=== PATIENT | male | born 1995 | race American Indian/Alaskan Native ===

== ENCOUNTER 2017-07-25 21:33 | Emergency (ER) | payer SELFPAY ==
[2017-07-25 22:03] VITALS: BP 119/64
== END 2017-07-26 00:15 | disposition left against medical advice (07) ==
LOC: ED 21:33
DX: Z53.21 Procedure and treatment not carried out due to patient leaving prior to being seen by health care provider (principal)

== ENCOUNTER 2018-11-19 07:53 | Emergency (ER) | payer MEDICARE ==
[2018-11-19 09:21] VITALS: BP 125/63
--- NOTE | 2018-11-19 11:11 | Emergency Department Report ---
ED ENT HPI - General Chief complaint: Earache Stated complaint: EAR ACHE Time Seen by Provider: 11/19/18 10:48 Source: patient Mode of arrival: Ambulatory Limitations: No Limitations - History of Present Illness Initial comments: This is a 22-year-old male brought by mother nontoxic, well nourished in appearance, no acute signs of distress presents to the ED with c/o of left earache and discharge. Patient denies any ear drainage. Patient denies any trauma to the area. Patient denies any mastoid tenderness. Patient agrees to tragus tenderness. Patient denies hearing decrease or hearing changes. Patient denies any fever, chills, nausea, vomiting, chest pain, short of breath, headache or stiff neck. Patient denies any drug allergies. Patient is a poor historian. Patient denies any depression. Patient denies hearing voices or visual hallucinations. HX of psych. Denies any SI/HI. MD complaint: ear pain Location: L ear Severity: mild Severity scale (0 -10): 8 Quality: aching Consistency: constant Improves with: none Worsens with: none Associated Symptoms: discharge from ear. denies: fever, cough, gum swelling, toothache, pain with swallowing, sore throat, tinnitus, hearing loss, rhinorrhea - Related Data Previous Rx's Medication Instructions Recorded Last Taken Type Amoxicillin [Amoxicillin TAB] 875 mg PO BID #20 tablet 11/19/18 Unknown Rx Cipro/Dexameth 0.3/0.1% [Ciprodex 4 drops OT BID #1 bottle 11/19/18 Unknown Rx OTIC] Allergies Allergy/AdvReac Type Severity Reaction Status Date / Time No Known Allergies Allergy Unverified 07/25/17 22:15 ED Dental HPI - General Chief complaint: Earache Stated complaint: EAR ACHE Time Seen by Provider: 11/19/18 10:48 Source: patient Mode of arrival: Ambulatory Limitations: No Limitations - Related Data Previous Rx's Medication Instructions Recorded Last Taken Type Amoxicillin [Amoxicillin TAB] 875 mg PO BID #20 tablet 11/19/18 Unknown Rx Cipro/Dexameth 0.3/0.1% [Ciprodex 4 drops OT BID #1 bottle 11/19/18 Unknown Rx OTIC] Allergies Allergy/AdvReac Type Severity Reaction Status Date / Time No Known Allergies Allergy Unverified 07/25/17 22:15 ED Review of Systems ROS: Stated complaint: EAR ACHE Other details as noted in HPI Constitutional: denies: chills, fever Eyes: denies: eye pain, eye discharge, vision change ENT: ear pain. denies: throat pain Respiratory: denies: cough, shortness of breath, wheezing Cardiovascular: denies: chest pain, palpitations Endocrine: no symptoms reported Gastrointestinal: denies: abdominal pain, nausea, diarrhea Genitourinary: denies: urgency, dysuria Musculoskeletal: denies: back pain, joint swelling, arthralgia Skin: denies: rash, lesions Neurological: denies: headache, weakness, paresthesias Psychiatric: denies: anxiety, depression Hematological/Lymphatic: denies: easy bleeding, easy bruising ED Past Medical Hx - Past Medical History Previous Medical History?: Yes Hx Psychiatric Treatment: Yes (scizophrenia) Hx HIV: Yes - Surgical History Past Surgical History?: No - Social History Smoking Status: Current Every Day Smoker Substance Use Type: None - Medications Home Medications: Home Medications Medication Instructions Recorded Confirmed Last Taken Type Amoxicillin [Amoxicillin TAB] 875 mg PO BID #20 tablet 11/19/18 Unknown Rx Cipro/Dexameth 0.3/0.1% [Ciprodex 4 drops OT BID #1 bottle 11/19/18 Unknown Rx OTIC] ED Physical Exam - General Limitations: No Limitations General appearance: alert, in no apparent distress - Head Head exam: Present: atraumatic, normocephalic - Expanded ENT Exam Expanded Ear exam: Present: normal external inspection TM/Canal exam: Erythema: Left TM, Bulging: Left TM, Canal Discharge: Left TM Mouth exam: Present: normal external inspection. Absent: drooling, trismus, muffled voice Throat exam: Positive: normal inspection - Neck Neck exam: Present: normal inspection, full ROM. Absent: tenderness, meningismus, lymphadenopathy - Extremities Exam Extremities exam: Present: normal inspection, full ROM - Back Exam Back exam: Present: normal inspection, full ROM - Neurological Exam Neurological exam: Present: alert, oriented X3 - Psychiatric Psychiatric exam: Present: normal affect, normal mood. Absent: depressed, homicidal ideation, suicidal ideation - Skin Skin exam: Present: warm, dry, intact, normal color. Absent: rash ED Course Vital Signs 11/19/18 09:19 Temperature 97.8 F Pulse Rate 85 Respiratory 16 Rate Blood Pressure 125/63 O2 Sat by Pulse 98 Oximetry - Reevaluation(s) Reevaluation #1: 11/19/18 11:09 Patient is speaking in full sentences with no signs of distress noted. Critical care attestation.: If time is entered above; I have spent that time in minutes in the direct care of this critically ill patient, excluding procedure time. ED Disposition Clinical Impression: Left otitis media Qualifiers: Otitis media type: unspecified Qualified Code(s): H66.92 - Otitis media, unspecified, left ear Left otitis externa Qualifiers: Otitis externa type: unspecified type Chronicity: acute Qualified Code(s): H60.502 - Unspecified acute noninfective otitis externa, left ear Disposition: TO HOME OR SELFCARE Is pt being admited?: No Does the pt Need Aspirin: No Condition: Stable Instructions: Otitis Externa (ED), Otitis Media (ED) Additional Instructions: Follow-up with a primary care doctor in 3-5 days or if symptoms worsen and continue return to emergency room as soon as possible. Prescriptions: Amoxicillin [Amoxicillin TAB] 875 mg PO BID #20 tablet Cipro/Dexameth 0.3/0.1% [Ciprodex OTIC] 4 drops OT BID #1 bottle Referrals: [facility] CLAUDIA WESTFALL MD [Primary Care Provider] - 3-5 Days PRIMARY MD ASHLEY [Referring] - 3-5 Days JOVITA ECHEVARRIA MD [Staff Physician] - 3-5 Days JUAN ADDISON MD [Staff Physician] - 3-5 Days [facility] [Outside] - 3-5 Days
== END 2018-11-19 11:17 | disposition home or self-care (01) ==
LOC: ED 07:53
DX: H66.92 Otitis media, unspecified, left ear (principal); H60.502 Unspecified acute noninfective otitis externa, left ear
CPT/HCPCS: 99282

== ENCOUNTER 2018-11-19 11:25 | Emergency (ER) | payer MEDICAID, MEDICARE ==
--- NOTE | 2018-11-19 11:58 | Emergency Department Report ---
Chief Complaint: Psych Stated Complaint: SUICIDAL Time Seen by Provider: 11/19/18 11:33 - HPI History of Present Illness: WANTS TO WILL SHOOT SELF RESPONDING TO INTERNAL VOICES "MENTAL VIG" PER PT AGITATED TO PSYCH FOR EVAL MSE screening note: Focused history and physical exam performed. Due to findings the following was ordered: ED Disposition for MSE Condition: Stable
[2018-11-19 12:50] LABS: Bilirubin,Urine NEG (Negative); Blood,Urine NEG (Negative); Color,Urine Yellow (Yellow); Mucus,Urine FEW /HPF; Protein,Urine <15 mg/dL mg/dL (Negative); Urobilinogen,Urine < 2.0 mg/dL (<2.0); WBC,Urine < 1.0 /HPF (0.0-6.0)
[2018-11-19 12:58] LABS: Amphetamine Screen,Urine PRESUMPTIVE NEGATIVE; Benzodiazepines Screen,Urine PRESUMPTIVE NEGATIVE; Cocaine Screen,Urine PRESUMPTIVE NEGATIVE; Methadone Screen,Urine PRESUMPTIVE NEGATIVE; Opiate Screen,Urine PRESUMPTIVE NEGATIVE
[2018-11-19 12:58] LABS: Basophils % (Auto) 0.6 % (0.0-1.8); Eosinophils % (Auto) 0.4 % (0.0-4.3); Hematocrit 46.1 % (35.5-45.6); Hemoglobin 16.2 gm/dl (11.8-15.2); Lymphocytes # (Auto) 1.9 K/mm3 (1.2-5.4); Lymphocytes % (Auto) 27.6 % (13.4-35.0); Mean Corpuscular HGB Conc 35 % (32-34); Mean Corpuscular Volume 102 fl (84-94); Monocytes # (Auto) 0.5 K/mm3 (0.0-0.8); Monocytes % (Auto) 7.3 % (0.0-7.3); Platelet Count 236 K/mm3 (140-440); Red Blood Count 4.53 M/mm3 (3.65-5.03); Red Cell Distribution Width 14.5 % (13.2-15.2)
[2018-11-19 13:14] LABS: Cannabinoid Screen,Urine PRESUMPTIVE POSITIVE
[2018-11-19 13:43] LABS: Alanine Aminotransferase 22 units/L (7-56); Albumin 4.8 g/dL (3.9-5); BUN/Creatinine Ratio 17; Blood Urea Nitrogen 15 mg/dL (9-20); Calcium 9.7 mg/dL (8.4-10.2); Hemolysis Index 15
--- NOTE | 2018-11-19 14:23 | Emergency Department Report ---
ED Psych HPI - General Chief Complaint: Psych Stated Complaint: SUICIDAL Time Seen by Provider: 11/19/18 11:33 Source: patient Mode of arrival: Ambulatory - History of Present Illness Initial Comments: This is a 22-year-old male nontoxic, well nourished in appearance, no acute si gns of distress presents to the ED with c/o of psychosis and stating wants to kill himself by shooting himself. Patient was just discharged by me. One patient was interviewed prior patient denied any suicidal or homicidal ideation. Patient was a poor historian. Patient denies any chest pain, shortness of breath, fever, chills, nausea, vomiting, headache or stiff neck. Denies any drug allergies. MD Complaint: suicidal ideation, feels depressed, other (psychosis) Associated Psychiatric Symptoms: depression, suicidal ideation History of same: Yes Quality: constant Improves With: none Worsens With: none Associated Symptoms: denies other symptoms. denies: confusion, headache, shortness of breath, nausea, vomiting, syncope, insomnia Treatments Prior to Arrival: none If Self Harm: admits thoughts of, has plan - Related Data Previous Rx's Medication Instructions Recorded Last Taken Type Amoxicillin [Amoxicillin TAB] 875 mg PO BID #20 tablet 11/19/18 Unknown Rx Cipro/Dexameth 0.3/0.1% [Ciprodex 4 drops OT BID #1 bottle 11/19/18 Unknown Rx OTIC] Allergies Allergy/AdvReac Type Severity Reaction Status Date / Time No Known Allergies Allergy Unverified 07/25/17 22:15 ED Review of Systems ROS: Stated complaint: SUICIDAL Other details as noted in HPI Constitutional: denies: chills, fever Eyes: denies: eye pain, eye discharge, vision change ENT: ear pain. denies: throat pain Respiratory: denies: cough, shortness of breath, wheezing Cardiovascular: denies: chest pain, palpitations Endocrine: no symptoms reported Gastrointestinal: denies: abdominal pain, nausea, diarrhea Genitourinary: denies: urgency, dysuria Musculoskeletal: denies: back pain, joint swelling, arthralgia Skin: denies: rash, lesions Neurological: denies: headache, weakness, paresthesias Psychiatric: depression, suicidal thoughts. denies: anxiety, homicidal thoughts Hematological/Lymphatic: denies: easy bleeding, easy bruising ED Past Medical Hx - Past Medical History Previous Medical History?: Yes Hx Psychiatric Treatment: Yes (scizophrenia) Hx HIV: Yes - Surgical History Past Surgical History?: No - Social History Smoking Status: Unknown if ever smoked Substance Use Type: None - Medications Home Medications: Home Medications Medication Instructions Recorded Confirmed Last Taken Type Amoxicillin [Amoxicillin TAB] 875 mg PO BID #20 tablet 11/19/18 Unknown Rx Cipro/Dexameth 0.3/0.1% [Ciprodex 4 drops OT BID #1 bottle 11/19/18 Unknown Rx OTIC] ED Physical Exam - General Limitations: No Limitations General appearance: alert, in no apparent distress - Head Head exam: Present: atraumatic, normocephalic - ENT ENT exam: Present: other (otits media and otits extrna) - Neck Neck exam: Present: normal inspection, full ROM. Absent: tenderness, meningismus, lymphadenopathy - Extremities Exam Extremities exam: Present: normal inspection, full ROM, normal capillary refill. Absent: tenderness - Back Exam Back exam: Present: normal inspection, full ROM. Absent: tenderness, CVA tenderness (R), CVA tenderness (L), muscle spasm, paraspinal tenderness, vertebral tenderness, rash noted - Neurological Exam Neurological exam: Present: alert, oriented X3 - Psychiatric Psychiatric exam: Present: depressed, suicidal ideation. Absent: normal affect, normal mood, agitated, anxious, flat affect, manic, homicidal ideation - Skin Skin exam: Present: warm, dry, intact, normal color. Absent: rash ED Course Vital Signs 11/19/18 11:56 Temperature 98.2 F Pulse Rate 87 Respiratory 18 Rate Blood Pressure 120/75 O2 Sat by Pulse 99 Oximetry - Reevaluation(s) Reevaluation #1: 11/19/18 14:24 Patient is speaking in full sentences with no signs of distress noted. ED Medical Decision Making - Lab Data Result diagrams: 11/19/18 12:29 11/19/18 12:29 Critical care attestation.: If time is entered above; I have spent that time in minutes in the direct care of this critically ill patient, excluding procedure time. ED Disposition Clinical Impression: Suicidal ideation Psychosis Qualifiers: Psychosis type: unspecified psychosis type Qualified Code(s): F29 - Unspecified psychosis not due to a substance or known physiological condition Left otitis media Qualifiers: Otitis media type: unspecified Qualified Code(s): H66.92 - Otitis media, unspecified, left ear Left otitis externa Qualifiers: Otitis externa type: unspecified type Chronicity: acute Qualified Code(s): H60.502 - Unspecified acute noninfective otitis externa, left ear Disposition: DC/TX-65 PSY HOSP/PSY UNIT Is pt being admited?: Yes Condition: Stable Referrals: JOIE CASTILLO MD [Primary Care Provider] - 3-5 Days
[2018-11-19] MEDS: CIPRODEX AD SCH ×2 (17:21→22:54)
[2018-11-19] MEDS: AUGMENTIN 500 MG PO SCH (17:22)
[2018-11-20] MEDS: AUGMENTIN 500 MG PO SCH ×2 (03:06→15:59)
--- NOTE | 2018-11-20 09:51 | Consultation ---
History of Present Illness - Reason for Consult Consult date: 11/20/18 Reason for consult: Mental Health Evaluation Requesting physician: KARUNA LAINEZ - Chief Complaint Chief complaint: "I want to leave" - History of Present Psychiatric Illness 22 y.o. AA male who presented to the ER SI's. Today the patient is calm and cooperative during the assessment. Per collateral information from the patient's mother Lizett Billings at [phone], she stated that her son was brought to the ER originally for a "eye pain." She stated that she was informed that he said "something" about wanting to kill himself. She stated that her son has a Intellectual disability. She denies any previous suicide attempts when asked. She stated that her son is compliant with his medication (Zyprexa). She stated that her son is seen by [facility] for outpatient psy services. She stated that she will pick her son up once he is discharged. She stated that the patient have medication at home. The patient denies SI/HI's. Per the chart, no behavioral disturbances by the patient overnight. Medications and Allergies Allergies Allergy/AdvReac Type Severity Reaction Status Date / Time No Known Allergies Allergy Unverified 07/25/17 22:15 Home Medications Medication Instructions Recorded Confirmed Last Taken Type Amoxicillin [Amoxicillin TAB] 875 mg PO BID #20 tablet 11/19/18 Unknown Rx Cipro/Dexameth 0.3/0.1% [Ciprodex 4 drops OT BID #1 bottle 11/19/18 Unknown Rx OTIC] Active Meds: Active Medications Amoxicillin/Clavulanate Potassium (Augmentin 500 Mg) [address] [facility] Last Admin: 11/20/18 03:06 Dose: 1 each Documented by: Ciprofloxacin/Dexamethasone (Ciprodex) [address] [facility] Last Admin: 11/19/18 22:54 Dose: 4 drops Documented by: Past psychiatric history - Past Medical History Past Medical History: HIV/AIDS Past Surgical History: No surgical history - past Psychiatric treatment and history psychiatric treatment history: The patient is seen at [facility]. Denies a fam psy hx per the patient's mother Ld Billings. - Social History Social history: lives with family Mental Status Exam - Vital signs Last Vital Signs Temp 97.8 F 11/20/18 01:00 Pulse 79 11/20/18 01:00 Resp 18 11/20/18 01:00 BP 124/85 11/20/18 01:00 Pulse Ox 99 11/20/18 01:00 - Exam Narrative exam: MSE: Appearance: calm, cooperative Behavior: regular eye contact Speech: some what slurred speech Mood: "okay" Affect: congruent to mood Thought Process: unable to assess Thought Content: denies SI/HI's and AVH's Motor Activity: sitting up in bed Cognition: A/O x 3 Insight: variable Judgment: fair Results Result Diagrams: 11/19/18 12:29 11/19/18 12:29 Abnormal lab results 11/19/18 11/19/18 11/19/18 Range/Units 12:23 12:29 12:29 Hgb 16.2 H (11.8-15.2) gm/dl Hct 46.1 H (35.5-45.6) % MCV 102 H (84-94) fl MCH 36 H (28-32) pg MCHC 35 H (32-34) % Total Protein 8.6 H (6.3-8.2) g/dL Ur Specific [place] 1.032 H (1.003-1.030) Salicylates (2.8-20.0) mg/dL Acetaminophen (10.0-30.0) ug/mL 11/19/18 11/19/18 Range/Units 12:29 12:29 Hgb (11.8-15.2) gm/dl Hct (35.5-45.6) % MCV (84-94) fl MCH (28-32) pg MCHC (32-34) % Total Protein (6.3-8.2) g/dL Ur Specific [place] (1.003-1.030) Salicylates < 0.3 L (2.8-20.0) mg/dL Acetaminophen < 5.0 L (10.0-30.0) ug/mL All other labs normal. Assessment and Plan Assessment and plan: Impression: Schizoaffective DO per the patient's mother. Unspecified Intellectual Disability. Today the patient is calm and cooperative during the assessment. The patient is no threat to self. Recommendation/Plan: Rescind 1013. The patient do not need any prescriptions. . Dispo: The patient can follow up with [facility] for outpatient psy services. Will staff with Dr Matt Thompson.
--- NOTE | 2018-11-20 11:10 | Emergency Department Report ---
Blank Doc - Documentation Documentation: I was asked by the nurse to evaluate Mr. Boothe for discharge. Patient was adm itted for acute psychosis and suicidal ideation. Patient is calm and cooperative and denied any suicidal or homicidal ideation. Patient denied any visual or auditory hallucination. Patient has been assessed by our mental health and psychiatric team and recommended outpatient treatment. Patient discharged in stable clinical and psychiatric condition.
[2018-11-20] MEDS: CIPRODEX AD SCH (11:52)
[2018-11-20 17:31] VITALS: BP 118/71
--- NOTE | 2019-03-16 14:12 | Consultation ---
History of Present Illness - Reason for Consult Consult date: 03/16/19 Reason for consult: Mental Health Evaluation - Chief Complaint Chief complaint: "I want to leave" Medications and Allergies Allergies Allergy/AdvReac Type Severity Reaction Status Date / Time No Known Allergies Allergy Unverified 07/25/17 22:15 Home Medications Medication Instructions Recorded Confirmed Last Taken Type OLANZapine [Zyprexa] 20 mg PO QHS 03/15/19 03/15/19 Unknown History OLANzapine [ZyPREXA] 10 mg PO QHS 03/15/19 03/15/19 Unknown History QUEtiapine [SEROquel] 100 mg PO QHS 03/15/19 03/15/19 Unknown History Mental Status Exam - Vital signs Last Vital Signs Temp 98.2 F 11/20/18 16:27 Pulse 90 11/20/18 16:27 Resp 18 11/20/18 16:27 BP 118/71 11/20/18 16:27 Pulse Ox 100 11/20/18 16:27 Results Result Diagrams: 11/19/18 12:29 11/19/18 12:29 All other labs normal.
--- NOTE | 2019-03-16 14:14 | Consultation ---
History of Present Illness - Reason for Consult Consult date: 03/16/19 Reason for consult: Mental Health Evaluation Requesting physician: SELENA MODI III - Chief Complaint Chief complaint: "I didn't do anything wrong" - History of Present Psychiatric Illness 23-year-old AA male who presented to the ER for AH's. This patient is known to me. Today the patient was calm during the assessment. He would answer some of my questions when asked. The patent has a hx of unspecified intellectual disabili ty. He does deny SI/HI's and AVH's. Overall, the patient's insight is limited. Medications and Allergies Allergies Allergy/AdvReac Type Severity Reaction Status Date / Time No Known Allergies Allergy Unverified 07/25/17 22:15 Home Medications Medication Instructions Recorded Confirmed Last Taken Type OLANZapine [Zyprexa] 20 mg PO QHS 03/15/19 03/15/19 Unknown History OLANzapine [ZyPREXA] 10 mg PO QHS 03/15/19 03/15/19 Unknown History QUEtiapine [SEROquel] 100 mg PO QHS 03/15/19 03/15/19 Unknown History Past psychiatric history - Past Medical History Past Medical History: HIV/AIDS Past Surgical History: Other (Unable to obtain ) - past Psychiatric treatment and history psychiatric treatment history: The patient is seen at [facility] for [facility]. Unable to obtain a fam psy hx. - Social History Social history: lives with family Mental Status Exam - Vital signs Last Vital Signs Temp 98.2 F 11/20/18 16:27 Pulse 90 11/20/18 16:27 Resp 18 11/20/18 16:27 BP 118/71 11/20/18 16:27 Pulse Ox 100 11/20/18 16:27 - Exam Narrative exam: MSE: Appearance: calm, cooperative Behavior: regular eye contact Speech: some what slurred speech Mood: "okay" Affect: congruent to mood Thought Process: unable to assess Thought Content: denies SI/HI's and AVH's Motor Activity: sitting up in bed Cognition: A/O x 3 Insight: limited Judgment: unable to assess Results Result Diagrams: 11/19/18 12:29 11/19/18 12:29 All other labs normal. Assessment and Plan Assessment and plan: Impression: Hx of Schizoaffective DO per the record and Unspecified Intellectual Disability. Today the patient was calm and cooperative during the assessment. Recommendation/Plan: Continue 1013 and gather collateral information. . Dispo: Once collateral information is gathered, proper dispo will be determined. Will staff with Dr Matt Thompson.
== END 2018-11-20 17:34 ==
LOC: EEVIPCON 11:25 → ED 11:25
DX: F25.9 Schizoaffective disorder, unspecified (principal); F79 Unspecified intellectual disabilities; F29 Unspecified psychosis not due to a substance or known physiological condition; H66.92 Otitis media, unspecified, left ear; H60.502 Unspecified acute noninfective otitis externa, left ear
CPT/HCPCS: 36415; 80053; 80307; 81001; 85025; 99284; G0480; 80320

== ENCOUNTER 2019-03-15 02:29 | Emergency (ER) | payer MEDICARE ==
[2019-03-15 03:15] LABS: Bilirubin,Urine NEG (Negative); Blood,Urine NEG (Negative); Color,Urine Yellow (Yellow); Mucus,Urine FEW /HPF; Protein,Urine <15 mg/dL mg/dL (Negative); Urobilinogen,Urine < 2.0 mg/dL (<2.0)
[2019-03-15 03:24] LABS: Amphetamine Screen,Urine PRESUMPTIVE NEGATIVE; Benzodiazepines Screen,Urine PRESUMPTIVE NEGATIVE; Cocaine Screen,Urine PRESUMPTIVE NEGATIVE; Methadone Screen,Urine PRESUMPTIVE NEGATIVE; Opiate Screen,Urine PRESUMPTIVE NEGATIVE
[2019-03-15 03:25] LABS: Hematocrit 43.4 % (35.5-45.6); Hemoglobin 14.9 gm/dl (11.8-15.2); Mean Corpuscular HGB Conc 34 % (32-34); Mean Corpuscular Hemoglobin 35 pg (28-32); Mean Corpuscular Volume 100 fl (84-94); Platelet Count 200 K/mm3 (140-440); Red Blood Count 4.32 M/mm3 (3.65-5.03); Red Cell Distribution Width 15.3 % (13.2-15.2)
[2019-03-15 03:37] LABS: Cannabinoid Screen,Urine PRESUMPTIVE POSITIVE
[2019-03-15 03:37] LABS: BUN/Creatinine Ratio 19; Blood Urea Nitrogen 19 mg/dL (9-20); Calcium 9.8 mg/dL (8.4-10.2); Hemolysis Index 12
--- NOTE | 2019-03-15 06:24 | Emergency Department Report ---
ED Psych HPI - General Chief Complaint: Psych Stated Complaint: MH Time Seen by Provider: 03/15/19 06:23 Source: patient Mode of arrival: Ambulatory Limitations: No Limitations - History of Present Illness Initial Comments: Patient is a 23-year-old mellitus for mental evaluation. Patient states he is hearing voices and seeing patients. Patient states she is also having thoughts that people are out to get him and that people are always watching him. Patient denies suicidal or homicidal ideations. Patient denies chest pain shortness of breath. Patient denies headache. Patient denies blurry vision. Patient denies physical complaints. -: Sudden Associated Psychiatric Symptoms: racing thoughts, auditory hallucinations, visual hallucinations History of same: Yes Quality: constant Improves With: none Worsens With: none Context: significant life stressor Associated Symptoms: denies: confusion, headache, shortness of breath, nausea, vomiting, syncope, insomnia - Related Data Previous Rx's Medication Instructions Recorded Last Taken Type Amoxicillin [Amoxicillin TAB] 875 mg PO BID #20 tablet 11/19/18 Unknown Rx Cipro/Dexameth 0.3/0.1% [Ciprodex 4 drops OT BID #1 bottle 11/19/18 Unknown Rx OTIC] Allergies Allergy/AdvReac Type Severity Reaction Status Date / Time No Known Allergies Allergy Unverified 07/25/17 22:15 ED Review of Systems ROS: Stated complaint: MH Other details as noted in HPI Constitutional: denies: chills, fever Eyes: denies: eye pain, eye discharge, vision change ENT: denies: ear pain, throat pain Respiratory: denies: cough, shortness of breath, wheezing Cardiovascular: denies: chest pain, palpitations Endocrine: no symptoms reported Gastrointestinal: denies: abdominal pain, nausea, diarrhea Genitourinary: denies: urgency, dysuria Musculoskeletal: denies: back pain, joint swelling, arthralgia Skin: denies: rash, lesions Neurological: denies: headache, weakness, paresthesias Psychiatric: depression, auditory hallucinations, visual hallucinations. denies: anxiety Hematological/Lymphatic: denies: easy bleeding, easy bruising ED Past Medical Hx - Past Medical History Previous Medical History?: Yes Hx Psychiatric Treatment: Yes (schizophrenia) Hx HIV: Yes - Surgical History Past Surgical History?: No - Social History Smoking Status: Never Smoker Substance Use Type: Marijuana - Medications Home Medications: Home Medications Medication Instructions Recorded Confirmed Last Taken Type Amoxicillin [Amoxicillin TAB] 875 mg PO BID #20 tablet 11/19/18 Unknown Rx Cipro/Dexameth 0.3/0.1% [Ciprodex 4 drops OT BID #1 bottle 11/19/18 Unknown Rx OTIC] ED Physical Exam - General Limitations: No Limitations General appearance: alert, in no apparent distress - Head Head exam: Present: atraumatic, normocephalic - Eye Eye exam: Present: normal appearance - ENT ENT exam: Present: mucous membranes moist - Neck Neck exam: Present: normal inspection - Respiratory Respiratory exam: Present: normal lung sounds bilaterally. Absent: respiratory distress - Cardiovascular Cardiovascular Exam: Present: regular rate, normal rhythm. Absent: systolic m urmur, diastolic murmur, rubs, gallop - GI/Abdominal GI/Abdominal exam: Present: soft, normal bowel sounds - Rectal Rectal exam: Present: deferred - Extremities Exam Extremities exam: Present: normal inspection - Back Exam Back exam: Present: normal inspection - Neurological Exam Neurological exam: Present: alert, oriented X3 - Psychiatric Psychiatric exam: Present: flat affect. Absent: homicidal ideation, suicidal ideation - Expanded Psychiatric Exam Expanded Focused psych exam: Present: pressured speech, delusional, paranoid, restlessness, flight of ideas - Skin Skin exam: Present: warm, dry, intact, normal color. Absent: rash ED Course Vital Signs 03/15/19 03/15/19 02:44 07:00 Temperature 97.9 F 97.5 F L Pulse Rate 79 99 H Respiratory 20 16 Rate Blood Pressure 115/70 Blood Pressure 109/74 [Left] O2 Sat by Pulse 100 99 Oximetry - Reevaluation(s) Reevaluation #1: pt placed on 1013 03/15/19 07:40 Reevaluation #2: Discussed all results with patient. Patient is medically clear. Patient will remain in the ER as a 1013. Patient agrees with plan of care 03/15/19 07:54 ED Medical Decision Making - Lab Data Result diagrams: 03/15/19 03:05 03/15/19 03:05 - Medical Decision Making Patient is a 23-year-old male presents to emergency room with complaints of audiovisual hallucinations, delusions and paranoia. Patient's findings consistent with acute psychosis. Patient placed on 1013 for his safety. Patient's labs on her and unremarkable. Patient is medically clear. Patient will remain in the ER on a 1013 until accepted into appropriate psychiatric facility. - Differential Diagnosis acute psychosis Critical care attestation.: If time is entered above; I have spent that time in minutes in the direct care of this critically ill patient, excluding procedure time. ED Disposition Clinical Impression: Hallucination, Acute psychosis Disposition: DC/TX-65 PSY HOSP/PSY UNIT Is pt being admited?: No Does the pt Need Aspirin: No Condition: Stable Additional Instructions: Patient medically cleared Referrals: JOIE CASTILLO MD [Primary Care Provider] - 3-5 Days Time of Disposition: 11:24
[2019-03-16] MEDS ORDERED: GEODON IM ONE ×2 (10:52→10:56)
[2019-03-16] MEDS ORDERED: WATER FOR INJ Sterile (PF) 10 ML ONE (10:53)
--- NOTE | 2019-03-16 20:53 | Consultation ---
History of Present Illness - Reason for Consult Consult date: 03/16/19 Reason for consult: Mental Health Evaluation Requesting physician: SELENA MODI III - Chief Complaint Chief complaint: "I didn't do anything wrong" - History of Present Psychiatric Illness 23-year-old AA male who presented to the ER for AH's. This patient is known to me. Today the patient was calm during the assessment. He would answer some of my questions when asked. The patent has a hx of unspecified intellectual disabili ty. The patient denies SI/HI's and AVH's. Overall, the patient's insight is limited. Medications and Allergies Allergies Allergy/AdvReac Type Severity Reaction Status Date / Time No Known Allergies Allergy Unverified 07/25/17 22:15 Home Medications Medication Instructions Recorded Confirmed Last Taken Type OLANZapine [Zyprexa] 20 mg PO QHS 03/15/19 03/15/19 Unknown History OLANzapine [ZyPREXA] 10 mg PO QHS 03/15/19 03/15/19 Unknown History QUEtiapine [SEROquel] 100 mg PO QHS 03/15/19 03/15/19 Unknown History Past psychiatric history - Past Medical History Past Medical History: HIV/AIDS Past Surgical History: No surgical history - past Psychiatric treatment and history psychiatric treatment history: The patient is seen at [facility] for [facility]. Unable to obtain a [facility] psy hx. Mental Status Exam - Vital signs Last Vital Signs Temp 98.7 F 03/16/19 17:00 Pulse 59 L 03/16/19 17:00 Resp 18 03/16/19 17:00 BP 119/53 03/16/19 17:00 Pulse Ox 100 03/16/19 17:00 - Exam Narrative exam: MSE: Appearance: calm, cooperative Behavior: regular eye contact Speech: some what slurred speech Mood: "okay" Affect: congruent to mood Thought Process: unable to assess Thought Content: denies SI/HI's and AVH's Motor Activity: sitting up in bed Cognition: A/O x 3 Insight: limited Judgment: unable to assess Results Result Diagrams: 03/15/19 03:05 03/15/19 03:05 All other labs normal. Assessment and Plan Assessment and plan: Impression: Hx of Schizoaffective DO and Unspecified Intellectual Disability per the record. Today the patient was calm and cooperative during the assessment. Recommendation/Plan: Continue 1013 and gather collateral information. Dispo: Once collateral information is gathered, proper dispo will be determined. Staffed with Dr Matt Thompson.
[2019-03-17] MEDS ORDERED: ATIVAN PO ONE (00:30)
[2019-03-17] MEDS ORDERED: ATIVAN ONE (00:33)
--- NOTE | 2019-03-17 18:54 | Progress Note ---
Subjective - Reason for Consult Consult date: 03/17/19 Reason for consult: follow up - Chief Complaint Chief complaint: "Hey." 23-year-old AA male who presented to the ER for AH's. He acknowledges he normally takes medication but was not sure what. The patent has a hx of unspecified intellectual disability. He was unable to appropriately participate in conversation. He was walking around the room touching various items. Overall, the patient's insight is limited. Mental Status Exam - Vital signs Last Vital Signs Temp 98.8 F 03/17/19 14:19 Pulse 69 03/17/19 14:19 Resp 18 03/17/19 14:19 BP 106/65 03/17/19 14:19 Pulse Ox 100 03/17/19 14:19 - Exam Narrative exam: MSE: Appearance: attempted to be cooperative. Behavior: moving around the room touching various items Speech: pressured Mood: indifferent Affect: constricted Thought Process: unable to assess Thought Content: unable to assess Motor Activity: pacing but otherwise, no abnormal movements Cognition: A/O x 3 Insight: limited Judgment: unable to assess Assessment and Plan Impression: Hx of Schizoaffective DO and Unspecified Intellectual Disability per the record. Today the patient was easily distracted and unable to appropriately participate in an interview. He acknowledges taking medications but not recently. Recommendation/Plan: Continue 1013 and gather collateral information. start depakote dr 500mg bid for manic symptoms start risperdal 1mg hs for psychotic symptoms risks/benefits discussed. He is agreeable Dispo: inpatient psychiatric facility Staffed with Dr Matt Thompson.
[2019-03-17] MEDS: RisperDAL PO SCH (21:35)
--- NOTE | 2019-03-18 17:00 | Progress Note ---
Subjective - Reason for Consult Consult date: 03/18/19 Reason for consult: follow up - Chief Complaint Chief complaint: "What." 23-year-old AA male who presented to the ER for AH's. He acknowledges he normally takes medication but was not sure what. The patent has a hx of unspecified intellectual disability. He was unable to appropriately participate in conversation. He is responding to internal stimuli. He reports hearing voices but cannot describe them. He does not sit still and his nurse says he has not slept in 2 days. His hygiene is poor. Mental Status Exam - Vital signs Last Vital Signs Temp 98.7 F 03/18/19 13:00 Pulse 61 03/18/19 13:00 Resp 18 03/18/19 13:00 BP 131/81 03/18/19 13:00 Pulse Ox 100 03/18/19 13:00 - Exam Narrative exam: MSE: Appearance: attempted to be cooperative. Behavior: moving around the room touching various items Speech: pressured Mood: indifferent Affect: constricted Thought Process: unable to assess Thought Content: unable to assess Motor Activity: pacing but otherwise, no abnormal movements Cognition: A/O x 3 Insight: limited Judgment: unable to assess Assessment and Plan Impression: Hx of Schizoaffective DO and Unspecified Intellectual Disability per the record. Today the patient was easily distracted and unable to appropriately participate in an interview. He acknowledges taking medications but not recently. Recommendation/Plan: Continue 1013 and gather collateral information. continue depakote dr 500mg bid for manic symptoms continue risperdal 1mg hs for psychotic symptoms risks/benefits discussed. He is agreeable Dispo: inpatient psychiatric facility Staffed with Dr Matt Thompson.
[2019-03-18] MEDS: RisperDAL PO SCH (22:00)
[2019-03-19 10:43] VITALS: BP 147/62
--- NOTE | 2019-03-19 11:57 | Consultation ---
History of Present Illness - Reason for Consult Consult date: 03/19/19 Reason for consult: Mental Health evaluation Requesting physician: SELENA MODI III - Chief Complaint Chief complaint: "I didn't do anything wrong" - History of Present Psychiatric Illness This is the consult for 03/16/2019. The original consult was deleted by [employer] by mistake. 23 y.o. AA male who presented to the ER for AH's. This patient is known to me. Today the patient was calm and cooperative during the assessment. He would answer some of my questions when asked. The patient has a hx of unspecified intellectual disability. He does deny SI/HI's and AVH's. Overall, the patient's insight is limited. Medications and Allergies Allergies Allergy/AdvReac Type Severity Reaction Status Date / Time No Known Allergies Allergy Unverified 07/25/17 22:15 Home Medications Medication Instructions Recorded Confirmed Last Taken Type OLANZapine [Zyprexa] 20 mg PO QHS 03/15/19 03/15/19 Unknown History OLANzapine [ZyPREXA] 10 mg PO QHS 03/15/19 03/15/19 Unknown History QUEtiapine [SEROquel] 100 mg PO QHS 03/15/19 03/15/19 Unknown History Active Meds: Active Medications Divalproex Sodium (Depakote Dr) 500 mg PO BID [facility] Last Admin: 03/19/19 09:45 Dose: 500 mg Documented by: Risperidone (Risperdal) 1 mg PO [facility] Last Admin: 03/18/19 22:00 Dose: 1 mg Documented by: Past psychiatric history - Past Medical History Past Medical History: HIV/AIDS Past Surgical History: Other (Unable to obtain ) - past Psychiatric treatment and history psychiatric treatment history: The patient is seen at [facility] for mental health. Unable to obtain a [facility] hx. - Social History Social history: lives with family Mental Status Exam - Vital signs Last Vital Signs Temp 98.2 F 03/19/19 10:42 Pulse 72 03/19/19 10:42 Resp 16 03/19/19 10:42 BP 147/62 03/19/19 10:42 Pulse Ox 96 03/19/19 10:42 - Exam Narrative exam: MSE: Appearance: calm, cooperative Behavior: regular eye contact Speech: some what slurred speech Mood: "okay" Affect: congruent to mood Thought Process: unable to assess Thought Content: denies SI/HI's and AVH's Motor Activity: sitting up in bed Cognition: A/O x 3 Insight: limited Judgment: variable Results Result Diagrams: 03/15/19 03:05 03/15/19 03:05 All other labs normal. Assessment and Plan Assessment and plan: Impression: Schizoaffective DO and Unspecified intellectual Disability per the record. Today the patient is calm and cooperative during the assessment. The patient was positive for marijuana. Recommendation/Plan: continue 1013 and gather collateral information. . Dispo: Once collateral information is gathered, proper dispo will be determined. Staffed with Dr Matt Thompson.
--- NOTE | 2019-03-19 14:59 | Progress Note ---
Subjective - Reason for Consult Consult date: 03/19/19 Reason for consult: Psychiatry Follow-up - Chief Complaint Chief complaint: 'I want to leave" 23 y.o. AA male who presented to the ER for AH's. This patient is known to me. Today the patient was somewhat calm during the assessment. He is adamant about leaving the ER. Overall, the patient's insight was limited. Mental Status Exam - Vital signs Last Vital Signs Temp 98.2 F 03/19/19 10:42 Pulse 72 03/19/19 10:42 Resp 16 03/19/19 10:42 BP 147/62 03/19/19 10:42 Pulse Ox 96 03/19/19 10:42 - Exam Narrative exam: MSE: Appearance: somewhat calm Behavior: regular eye contact Speech: regular rate and tone Mood: 'I don't know how I feel" Affect: flat Thought Process: unable to assess Thought Content: unable to assess Motor Activity: sitting up in bed Cognition: A/O x 3 Insight: limited Judgment: unable to assess Assessment and Plan Impression: Schizoaffective DO and Unspecified intellectual Disability per the record. Today the patient was somewhat calm during the assessment. The patient was positive for marijuana. Recommendation/Plan: Continue 1013 . Dispo: The patient was accepted at [facility] for inpatient psy services. Will staff with Dr Matt Thompson.
== END 2019-03-19 13:00 ==
LOC: EEVIPCON 02:29 → ED 02:29
DX: F25.9 Schizoaffective disorder, unspecified (principal); F79 Unspecified intellectual disabilities; F12.10 Cannabis abuse, uncomplicated; Z79.899 Other long term (current) drug therapy
CPT/HCPCS: 36415; 80048; 80307; 81001; 85025; 96372; 99285; J3486; 80320; G0480